=== PATIENT | female | born 1935 | race Caucasian/White ===

== ENCOUNTER 2017-11-15 23:09 | Emergency (ER) | END 2017-11-16 03:42 | disposition home or self-care (01) ==

== ENCOUNTER 2018-12-18 16:34 | Emergency (ER) | payer OTHER ==
[~2018-12-18] VITALS: Ht 152.4 cm; Wt 63.7 kg
[~2018-12-18 16:34] MED LIST: ACET325T33 PO; ALEN70TA5 PO; ASPI-817 PO; CALC1TAB87 PO; CEPH500C PO; CHOL200056 PO; CHOL200073 PO; ENOX40DI2 SC; GABA300C16 PO; HYDR12.58 PO; LEVO50TA7 PO; MECL12.574 PO; METO-319 PO; METO-335 PO; MIRT30TA5 PO; NAPR-985 PO; POLY17PO6 PO; SIMV10TA PO
[2018-12-18 16:46] VITALS: Ht 152.4 cm; Wt 63.7 kg
--- NOTE | 2018-12-18 17:02 | ERD ---
ER Documentation Chief Complaint Chief Complaint lower back/ R leg pain x1.5wks. no trauma. hx OP. rx'd dicofle oint, neuron HPI 83-year-old woman complaining of low back pain bilateral leg ache x2 weeks. Pain worse with ambulation and she states her symptoms are due to chronic osteoporosis. She denies hematuria or dysuria, no weight loss, no fevers or chills, no complaints of chest pain or shortness of breath. ROS All systems reviewed and are negative except as per history of present illness. Medications Home Meds Active Scripts Naproxen* (Naprosyn*) 500 Mg Tablet, 500 MG PO BID PRN for PAIN AND/OR INFLAMMATION, #30 TAB Prov:RAUL HERNANDEZ MD 12/18/18 Cephalexin* (Cephalexin*) 500 Mg Capsule, 500 MG PO Q8, #21 CAP Prov:RAUL HERNANDEZ MD 12/18/18 Reported Medications Meclizine Hcl* (Antivert*) 12.5 Mg Tab, 12.5 MG PO Q8H, #30 TAB 12/18/18 Metoprolol Succinate* (Toprol XL*) 50 Mg Tab.er.24h, 50 MG PO DAILY, #30 TAB 12/18/18 Hydrochlorothiazide* (Hydrochlorothiazide*) 12.5 Mg Tablet, 12.5 MG PO DAILY, #30 TAB 12/18/18 Cholecalciferol (Vitamin D3) (Vitamin D-3) 2,000 Unit Tablet, 2000 UNIT PO DAILY, TAB 12/18/18 Gabapentin* (Gabapentin*) 300 Mg Capsule, 300 MG PO DAILY, #60 CAP 12/18/18 Alendronate Sodium* (Fosamax*) 70 Mg Tablet, 70 MG PO Q7D, #4 TAB 12/18/18 Aspirin* (Aspirin* EC) 81 Mg Tablet.dr, 81 MG PO DAILY, TAB 12/18/18 Mirtazapine* (Mirtazapine*) 30 Mg Tablet, 30 MG PO HS, TAB 12/18/18 Discontinued Reported Medications Aspirin* (Aspirin* EC) 81 Mg Tablet.dr, 81 MG PO DAILY, TAB 09/20/17 Metoprolol Succinate* (Toprol XL*) 25 Mg Tab.sr.24h, 25 MG PO DAILY, #30 TAB 09/20/17 Alendronate Sodium* (Fosamax*) 70 Mg Tablet, 70 MG PO Q SUN, #4 TAB 09/20/17 Simvastatin* (Zocor*) 10 Mg Tablet, 10 MG PO QHS, #30 TAB 09/20/17 Calcium Carbonate/Vitamin D3 (Calcium 600 + Vit D3 400 Tab) 1 Each Tablet, 1 EACH PO DAILY, TAB 09/20/17 Cholecalciferol (Vitamin D3) (VITAMIN D-3) 2,000 Unit Capsule, 2000 UNIT PO DAILY, CAP 09/20/17 Discontinued Scripts Polyethylene Glycol* (Miralax*) 17 Gm Powd.pack, 17 GM PO DAILY, #7 Prov:JAIME YOON MD 11/16/17 Allergies Allergies: Coded Allergies: No Known Allergy (Unverified , 12/18/18) PMhx/Soc Hypertension, osteoporosis, dyslipidemia, anemia History of Surgery: Yes (vaginal hysterectomy w/ general anasthesia) Anesthesia Reaction: No Hx Neurological Disorder: No Hx Respiratory Disorders: No Hx Cardiac Disorders: No Hx Psychiatric Problems: Yes (depression) Hx Miscellaneous Medical Probl: Yes (HTN, OBESITY, high cholesterol, osteoparosis) Hx Alcohol Use: No Hx Substance Use: No Hx Tobacco Use: No FmHx Family History: No diabetes Physical Exam Vitals Vital Signs Date Temp Pulse Resp B/P (MAP) Pulse Ox O2 O2 Flow FiO2 Time Delivery Rate 12/18/18 97.1 68 16 174/84 97 Room Air 20:01 (114) 12/18/18 97.9 65 16 189/92 95 16:46 (124) Physical Exam GENERAL: Well-developed, well-nourished, well-hydrated, in no apparent distress, looks nontoxic in appearance HEENT: Moist mucous membranes, pink conjunctiva, no cervical spine tenderness or step-off deformities, no goiter, no jaundice or icterus, extraocular movements intact without pain. NEURO: Alert and oriented 3, cranial nerves II through XII intact bilaterally, pupils equal round reactive to light, no focal deficits or facial asymmetry, sensation intact distally Strength 5/5 in upper and lower extremities bilaterally CARDIAC: Regular rate and rhythm, no murmurs rubs or gallops LUNGS: Clear bilaterally no wheezing crackles or stridor EXTREMITIES: No clubbing cyanosis or edema, calves are bilaterally symmetrical, no Homans sign, no popliteal cord sign. Distal pulses equal and bilateral PSYCH: Normal affect without agitation or irritability Results 24 hrs Laboratory Tests Test 12/18/18 17:49 Urine Color YELLOW Urine Clarity CLEAR Urine pH 8.0 Urine Specific [place] 1.006 Urine Ketones NEGATIVE mg/dL Urine Nitrite NEGATIVE mg/dL Urine Bilirubin NEGATIVE mg/dL Urine Urobilinogen NEGATIVE mg/dL Urine Leukocyte Esterase TRACE Gadiel/ul Urine Microscopic RBC 2 /HPF Urine Microscopic WBC 1 /HPF Urine Bacteria FEW /HPF Urine Hemoglobin 1+ mg/dL Urine Glucose NEGATIVE mg/dL Urine Total Protein NEGATIVE mg/dl Current Medications Medications Dose Sig/Santos Start Time Status Last (Trade) Ordered Route PRN Stop Time Admin Dose Reason Admin Ketorolac 30 mg ONCE STAT 12/18/18 DC 12/18/18 Tromethamine IM 17:09 12/18/18 18:01 (Toradol) 17:10 Cephalexin 500 mg ONCE ONCE 12/18/18 DC 12/18/18 (Keflex) PO 20:00 12/18/18 19:54 20:01 Procedures/MDM I administered Toradol 30 mg IM x1 for pain control. Urine analysis reveals early UTI so I treated her here with cephalexin 500 mg p.o. and will give her a prescription. Differential diagnoses considered, included but not limited to acute coronary syndrome, pulmonary embolism, aortic dissection, abdominal aortic aneurysm, sepsis, stroke, meningitis, encephalitis, pneumonia, appendicitis, cholecystitis, bowel obstruction, pyelonephritis, nephrolithiasis, cystitis, as well as metabolic, hematologic, and electrolyte abnormalities. As well as abscess, cellulitis, fractures, and dislocations. Patient feels much better at this time, and vital signs are normal, symptoms have improved. I did give strict instructions to return to the ED if symptoms continue or worsen, patient will otherwise follow-up with primary care physician. Patient understood instructions and agreed to plan. Disclaimer: Inadvertent spelling and grammatical errors are likely due to EHR/dictation software use and do not reflect on the overall quality of patient care. Also, please note that the electronic time recorded on this note does not necessarily reflect the actual time of the patient encounter. Departure Diagnosis: Primary Impression: Lumbar back sprain Encounter type: initial encounter Qualified Codes: S33.5XXA - Sprain of ligaments of lumbar spine, initial encounter Additional Impressions: Body aches Acute UTI Condition: Good RAUL HERNANDEZ MD Dec 18, 2018 17:02
[2018-12-18] MEDS ORDERED: KETOROLAC 30 MG INJ IM STA (17:09)
[2018-12-18] MEDS ORDERED: CEPHALEXIN 500 MG CAP PO ONE (20:00)
[2018-12-18 20:01] VITALS: BP 174/84; PULSE 68; RESP 16
== END 2018-12-18 20:00 | disposition home or self-care (01) ==
LOC: E/R 16:34
DX: S33.5XXA Sprain of ligaments of lumbar spine, initial encounter (principal); N39.0 Urinary tract infection, site not specified; I10 Essential (primary) hypertension; S89.91XA Unspecified injury of right lower leg, initial encounter; S89.92XA Unspecified injury of left lower leg, initial encounter; X58.XXXA Exposure to other specified factors, initial encounter; Y92.9 Unspecified place or not applicable
CPT/HCPCS: 81001; 96372; J1885; Z7502; Z7610

== ENCOUNTER 2018-12-26 16:46 | Inpatient (IN) | payer OTHER ==
[~2018-12-26] VITALS: Ht 152.4 cm; Wt 64.6 kg
[~2018-12-26 16:46] MED LIST changes: +AMLO-145 PO; -CALC1TAB87 PO; -CHOL200073 PO; +LEVO50TA89 PO; -METO-335 PO; -POLY17PO6 PO; -SIMV10TA PO
[2018-12-26] MEDS ORDERED: ONDANSETRON 4 MG INJ IV PRN ×2 (19:00→20:30)
[2018-12-26] MEDS ORDERED: ACETAMINOPHEN 325 MG TAB PO PRN ×2 (19:00→20:30)
[2018-12-26] MEDS ORDERED: NS + KCL 20 MEQ 1,000 ML IV SCH (20:02)
[2018-12-26] MEDS ORDERED: NACL 0.9% 3 ML SYG IV SCH (20:30)
[2018-12-26] MEDS ORDERED: ZOLPIDEM 5 MG TAB PO PRN (20:30)
[2018-12-26 20:54] VITALS: BP 127/56; PULSE 71; RESP 19
[2018-12-26 21:00] VITALS: BP 123/48; PULSE 70; RESP 16
[2018-12-26] MEDS: MIRTAZAPINE 15 MG TAB PO SCH (21:00)
[2018-12-26 21:40] VITALS: Ht 152.4 cm; Wt 64.6 kg
[2018-12-26 22:00] VITALS: BP 116/63; PULSE 66; RESP 12
[2018-12-26 23:00] VITALS: BP 110/60; PULSE 64; RESP 14
[2018-12-27] VITALS (17 sets, daily range): BP systolic 93–150; BP diastolic 46–87; PULSE 63–78; RESP 12–26
[2018-12-27] MEDS: morphine 2 MG INJ IV PRN (01:30)
[2018-12-27] MEDS: POTASSIUM CHLORIDE 100 ML IVPB SCH ×2 (06:36→09:08)
[2018-12-27] MEDS: ENOXAPARIN 40 MG/0.4 ML SYG SC SCH (09:57)
[2018-12-27] MEDS ORDERED: POTASSIUM CHLORIDE 30 MEQ in SOD CHLORIDE 0.9% 1,000 ML IV SCH (10:00)
[2018-12-27] MEDS: DEXTROSE 5% 1,000 ML IV SCH ×2 (11:43→20:10)
[2018-12-27] MEDS: MIRTAZAPINE 15 MG TAB PO SCH (20:11)
[2018-12-27] MEDS: HYDROCODONE/APAP (5/325) TAB PO PRN (20:21)
[2018-12-28] VITALS: BP 133/65; PULSE 75; RESP 19
[2018-12-28 04:00] VITALS: BP 139/70; PULSE 71; RESP 18
[2018-12-28 07:36] VITALS: BP 154/87; PULSE 76; RESP 20
[2018-12-28] MEDS: ENOXAPARIN 40 MG/0.4 ML SYG SC SCH (08:36)
[2018-12-28] MEDS: DEXTROSE 5% 1,000 ML IV SCH (08:41)
[2018-12-28] MEDS ORDERED: POTASSIUM CHLORIDE 20 MEQ POWDER FOR ORAL SOLN PO ONE (10:00)
[2018-12-28 11:04] VITALS: BP 116/55; PULSE 84; RESP 20
[2018-12-28 16:12] VITALS: BP 134/63; PULSE 75; RESP 20
[2018-12-28 20:00] VITALS: BP 142/63; PULSE 70; RESP 20
[2018-12-28] MEDS: HYDROCODONE/APAP (5/325) TAB PO PRN (21:13)
[2018-12-28] MEDS: MIRTAZAPINE 15 MG TAB PO SCH (21:13)
[2018-12-28] MEDS ORDERED: HALOPERIDOL 5 MG INJ IM ONE (23:30)
[2018-12-29] VITALS: BP 138/62; PULSE 74; RESP 18
[2018-12-29 04:00] VITALS: BP 142/65; PULSE 75; RESP 18
[2018-12-29] MEDS: ENOXAPARIN 40 MG/0.4 ML SYG SC SCH (08:32)
[2018-12-29 11:06] VITALS: BP 132/75; PULSE 90; RESP 19
[2018-12-29 15:36] VITALS: BP 169/81; PULSE 86; RESP 18
[2018-12-29 16:15] VITALS: BP 142/69
[2018-12-29] MEDS: METOPROLOL (XL) 25 MG TAB PO SCH (18:09)
[2018-12-29 19:39] VITALS: BP 146/85; PULSE 91; RESP 18
[2018-12-29] MEDS ORDERED: HALOPERIDOL 5 MG INJ IM ONE (21:00)
[2018-12-29] MEDS: MIRTAZAPINE 15 MG TAB PO SCH (21:33)
[2018-12-30] VITALS (7 sets, daily range): BP systolic 132–168; BP diastolic 63–93; PULSE 64–99; RESP 18–20
[2018-12-30] MEDS ORDERED: LORAZEPAM 2 MG INJ ONE (02:20)
[2018-12-30] MEDS ORDERED: LORAZEPAM 2 MG INJ IV SCH (04:30)
[2018-12-30] MEDS ORDERED: HALOPERIDOL 5 MG INJ IM SCH (04:30)
[2018-12-30] MEDS: METOPROLOL (XL) 25 MG TAB PO SCH (08:24)
[2018-12-30] MEDS: ENOXAPARIN 40 MG/0.4 ML SYG SC SCH (08:46)
[2018-12-30] MEDS: HYDROCODONE/APAP (5/325) TAB PO PRN (10:44)
[2018-12-30] MEDS: LEVOTHYROXINE 50 MCG TAB PO SCH (14:47)
[2018-12-30] MEDS: MIRTAZAPINE 15 MG TAB PO SCH (20:19)
[2018-12-31 02:23] VITALS: BP 138/63; PULSE 18; RESP 18
[2018-12-31 02:25] VITALS: PULSE 73
[2018-12-31] MEDS: LEVOTHYROXINE 50 MCG TAB PO SCH (06:35)
[2018-12-31 08:09] VITALS: BP 186/88; PULSE 93; RESP 16
[2018-12-31] MEDS: ASPIRIN (EC) 81 MG TAB PO SCH (08:21)
[2018-12-31] MEDS: GABAPENTIN 300 MG CAP PO SCH (08:21)
[2018-12-31] MEDS: METOPROLOL (XL) 25 MG TAB PO SCH (08:22)
[2018-12-31] MEDS: ENOXAPARIN 40 MG/0.4 ML SYG SC SCH (08:25)
[2018-12-31 14:50] VITALS: BP 142/72; PULSE 96; RESP 16
[2018-12-31 20:00] VITALS: BP 137/70; PULSE 87; RESP 19
[2018-12-31] MEDS: MIRTAZAPINE 15 MG TAB PO SCH (20:34)
[2019-01-01 02:00] VITALS: BP 141/79; PULSE 72; RESP 18
[2019-01-01] MEDS: LEVOTHYROXINE 50 MCG TAB PO SCH (05:46)
[2019-01-01 07:39] VITALS: BP 153/74; PULSE 78; RESP 18
[2019-01-01] MEDS: GABAPENTIN 300 MG CAP PO SCH (09:02)
[2019-01-01] MEDS: ASPIRIN (EC) 81 MG TAB PO SCH (09:02)
[2019-01-01] MEDS: METOPROLOL (XL) 25 MG TAB PO SCH (09:03)
[2019-01-01] MEDS: ENOXAPARIN 40 MG/0.4 ML SYG SC SCH (09:07)
[2019-01-01 14:01] VITALS: BP 131/64; PULSE 62; RESP 18
[2019-01-01] MEDS: HYDROCODONE/APAP (5/325) TAB PO PRN (18:20)
[2019-01-01 19:43] VITALS: BP 103/55; PULSE 96; RESP 18
[2019-01-01] MEDS: MIRTAZAPINE 15 MG TAB PO SCH (20:25)
[2019-01-02 02:43] VITALS: BP 128/76; PULSE 79; RESP 17
[2019-01-02] MEDS: LEVOTHYROXINE 50 MCG TAB PO SCH (05:28)
[2019-01-02 07:49] VITALS: BP 127/65; PULSE 71; RESP 18
[2019-01-02] MEDS: SODIUM CHLORIDE 1 GM TAB PO SCH ×3 (08:27→20:21)
[2019-01-02] MEDS: ASPIRIN (EC) 81 MG TAB PO SCH (08:27)
[2019-01-02] MEDS: ENOXAPARIN 40 MG/0.4 ML SYG SC SCH (08:27)
[2019-01-02] MEDS: GABAPENTIN 300 MG CAP PO SCH ×2 (08:27→20:21)
[2019-01-02] MEDS: METOPROLOL (XL) 25 MG TAB PO SCH (08:28)
[2019-01-02] MEDS: DOCUSATE SODIUM 100 MG CAP PO PRN (08:33)
[2019-01-02 13:57] VITALS: BP 106/59; PULSE 77; RESP 18
[2019-01-02 20:18] VITALS: BP 109/56; PULSE 76; RESP 16
[2019-01-02] MEDS: MIRTAZAPINE 15 MG TAB PO SCH (20:21)
[2019-01-02] MEDS: morphine 2 MG INJ IV PRN (20:22)
[2019-01-02] MEDS: DICLOFENAC SODIUM 1% GEL 100 GM TUBE TP SCH (20:23)
[2019-01-03 02:14] VITALS: BP 159/79; PULSE 82; RESP 16
[2019-01-03 02:50] VITALS: BP 151/74
[2019-01-03] MEDS: GABAPENTIN 100 MG CAP PO SCH ×2 (05:12→17:17)
[2019-01-03] MEDS: LEVOTHYROXINE 50 MCG TAB PO SCH (05:12)
[2019-01-03] MEDS: ASPIRIN (EC) 81 MG TAB PO SCH (08:11)
[2019-01-03] MEDS: SODIUM CHLORIDE 1 GM TAB PO SCH ×3 (08:11→20:16)
[2019-01-03] MEDS: DICLOFENAC SODIUM 1% GEL 100 GM TUBE TP SCH ×2 (08:12→20:17)
[2019-01-03] MEDS: ENOXAPARIN 40 MG/0.4 ML SYG SC SCH (08:12)
[2019-01-03 08:15] VITALS: BP 122/62; PULSE 97; RESP 18
[2019-01-03] MEDS: METOPROLOL (XL) 25 MG TAB PO SCH (08:17)
[2019-01-03 14:54] VITALS: BP 109/57; PULSE 89; RESP 17
[2019-01-03 20:00] VITALS: BP 126/60; RESP 18
[2019-01-03] MEDS: MIRTAZAPINE 15 MG TAB PO SCH (20:16)
[2019-01-03] MEDS: GABAPENTIN 300 MG CAP PO SCH (20:17)
[2019-01-03 21:02] VITALS: PULSE 81
[2019-01-04 02:00] VITALS: BP 154/72; PULSE 81; RESP 18
[2019-01-04 04:29] VITALS: BP 152/71; PULSE 71; RESP 18
[2019-01-04] MEDS ORDERED: NITROGLYCERIN (SL) 0.4 MG TAB SL ONE (04:30)
[2019-01-04] MEDS: LEVOTHYROXINE 50 MCG TAB PO SCH (05:17)
[2019-01-04] MEDS: GABAPENTIN 100 MG CAP PO SCH ×2 (05:17→17:08)
[2019-01-04 07:16] VITALS: BP 135/69; PULSE 65; RESP 18
[2019-01-04] MEDS: ASPIRIN (EC) 81 MG TAB PO SCH (08:54)
[2019-01-04] MEDS: DICLOFENAC SODIUM 1% GEL 100 GM TUBE TP SCH ×2 (08:54→20:31)
[2019-01-04] MEDS: SODIUM CHLORIDE 1 GM TAB PO SCH ×3 (08:54→20:30)
[2019-01-04] MEDS: METOPROLOL (XL) 25 MG TAB PO SCH (08:54)
[2019-01-04] MEDS: ENOXAPARIN 40 MG/0.4 ML SYG SC SCH (09:10)
[2019-01-04 14:25] VITALS: BP 146/62; PULSE 75; RESP 16
[2019-01-04] MEDS: HYDROCODONE/APAP (5/325) TAB PO PRN (17:08)
[2019-01-04] MEDS: MIRTAZAPINE 15 MG TAB PO SCH (20:31)
[2019-01-04] MEDS: FAMOTIDINE 20 MG TAB PO SCH (20:31)
[2019-01-04] MEDS: GABAPENTIN 300 MG CAP PO SCH (20:31)
[2019-01-05 02:00] VITALS: BP 156/83; PULSE 68; RESP 18
[2019-01-05] MEDS ORDERED: LORAZEPAM 2 MG INJ IV ONE (03:00)
[2019-01-05] MEDS: GABAPENTIN 100 MG CAP PO SCH ×2 (05:32→17:26)
[2019-01-05] MEDS: LEVOTHYROXINE 50 MCG TAB PO SCH (05:32)
[2019-01-05 08:09] VITALS: BP 157/73; PULSE 71; RESP 18
[2019-01-05] MEDS: ASPIRIN (EC) 81 MG TAB PO SCH (08:41)
[2019-01-05] MEDS: SODIUM CHLORIDE 1 GM TAB PO SCH ×3 (08:41→20:58)
[2019-01-05] MEDS: METOPROLOL (XL) 25 MG TAB PO SCH (08:41)
[2019-01-05] MEDS: ENOXAPARIN 40 MG/0.4 ML SYG SC SCH (08:42)
[2019-01-05] MEDS: DICLOFENAC SODIUM 1% GEL 100 GM TUBE TP SCH ×2 (08:42→20:58)
[2019-01-05 14:40] VITALS: BP 158/81; PULSE 72; RESP 18
[2019-01-05] MEDS: DOCUSATE SODIUM 100 MG CAP PO PRN (17:26)
[2019-01-05 19:52] VITALS: BP 178/84; PULSE 71; RESP 18
[2019-01-05] MEDS: MIRTAZAPINE 15 MG TAB PO SCH (20:58)
[2019-01-05] MEDS: FAMOTIDINE 20 MG TAB PO SCH (20:58)
[2019-01-05] MEDS: GABAPENTIN 300 MG CAP PO SCH (20:58)
[2019-01-05] MEDS ORDERED: hydrALAzine 20 MG INJ IV ONE (22:30)
[2019-01-06 00:30] VITALS: BP 174/72; PULSE 72
[2019-01-06] MEDS ORDERED: hydrALAzine 20 MG INJ IV ONE (01:00)
[2019-01-06 01:50] VITALS: BP 110/54; PULSE 82; RESP 17
[2019-01-06] MEDS: LEVOTHYROXINE 50 MCG TAB PO SCH (05:46)
[2019-01-06] MEDS: GABAPENTIN 100 MG CAP PO SCH ×2 (05:46→17:20)
[2019-01-06 07:54] VITALS: BP 135/64; PULSE 77; RESP 18
[2019-01-06] MEDS: SODIUM CHLORIDE 1 GM TAB PO SCH ×4 (08:43→20:45)
[2019-01-06] MEDS: DICLOFENAC SODIUM 1% GEL 100 GM TUBE TP SCH ×2 (08:44→20:46)
[2019-01-06] MEDS: METOPROLOL (XL) 25 MG TAB PO SCH (08:44)
[2019-01-06] MEDS: ENOXAPARIN 40 MG/0.4 ML SYG SC SCH (08:46)
[2019-01-06] MEDS: ASPIRIN (EC) 81 MG TAB PO SCH (09:20)
[2019-01-06 14:08] VITALS: BP 133/64; PULSE 88; RESP 18
[2019-01-06] MEDS: DOCUSATE SODIUM 100 MG CAP PO PRN (17:20)
[2019-01-06 19:46] VITALS: BP 145/69; PULSE 84; RESP 17
[2019-01-06] MEDS: GABAPENTIN 300 MG CAP PO SCH (20:45)
[2019-01-06] MEDS: MIRTAZAPINE 15 MG TAB PO SCH (20:45)
[2019-01-06] MEDS: FAMOTIDINE 20 MG TAB PO SCH (20:45)
[2019-01-07 01:53] VITALS: BP 160/76; PULSE 70; RESP 19
[2019-01-07] MEDS: LEVOTHYROXINE 50 MCG TAB PO SCH (05:32)
[2019-01-07] MEDS: GABAPENTIN 100 MG CAP PO SCH ×2 (05:32→17:26)
[2019-01-07 07:31] VITALS: BP 156/74; PULSE 67; RESP 16
[2019-01-07] MEDS ORDERED: POTASSIUM CHLORIDE (SR) 20 MEQ TAB PO STA ×2 (07:42→13:03)
[2019-01-07] MEDS: METOPROLOL (XL) 25 MG TAB PO SCH (08:07)
[2019-01-07] MEDS: SODIUM CHLORIDE 1 GM TAB PO SCH ×3 (08:07→20:40)
[2019-01-07] MEDS: ENOXAPARIN 40 MG/0.4 ML SYG SC SCH (08:07)
[2019-01-07] MEDS: ASPIRIN (EC) 81 MG TAB PO SCH (08:07)
[2019-01-07] MEDS: DICLOFENAC SODIUM 1% GEL 100 GM TUBE TP SCH ×2 (08:08→20:41)
[2019-01-07] MEDS: DOCUSATE SODIUM 100 MG CAP PO PRN (08:13)
[2019-01-07] MEDS: AMLODIPINE 5 MG TAB PO SCH (14:20)
[2019-01-07 14:25] VITALS: BP 133/63; PULSE 63; RESP 18
[2019-01-07 20:00] VITALS: BP 151/78; PULSE 86; RESP 18
[2019-01-07] MEDS: FAMOTIDINE 20 MG TAB PO SCH (20:40)
[2019-01-07] MEDS: GABAPENTIN 300 MG CAP PO SCH (20:40)
[2019-01-07] MEDS: MIRTAZAPINE 15 MG TAB PO SCH (20:40)
[2019-01-08 02:17] VITALS: BP 155/67; PULSE 87; RESP 17
[2019-01-08] MEDS: LEVOTHYROXINE 50 MCG TAB PO SCH (05:19)
[2019-01-08] MEDS: GABAPENTIN 100 MG CAP PO SCH ×2 (05:19→16:51)
[2019-01-08 07:22] VITALS: BP 154/72; PULSE 70; RESP 18
[2019-01-08] MEDS: ENOXAPARIN 40 MG/0.4 ML SYG SC SCH (08:11)
[2019-01-08] MEDS: SODIUM CHLORIDE 1 GM TAB PO SCH ×2 (08:12→12:11)
[2019-01-08] MEDS: ASPIRIN (EC) 81 MG TAB PO SCH (08:12)
[2019-01-08] MEDS: AMLODIPINE 5 MG TAB PO SCH (08:13)
[2019-01-08] MEDS: METOPROLOL (XL) 25 MG TAB PO SCH (08:13)
[2019-01-08] MEDS: DICLOFENAC SODIUM 1% GEL 100 GM TUBE TP SCH (08:13)
[2019-01-08] MEDS: morphine 2 MG INJ IV PRN (12:12)
[2019-01-08 13:35] VITALS: BP 148/71; PULSE 88; RESP 18
== END 2019-01-08 20:05 | disposition home health service (06) | DRG 640 ==
LOC: E/R 16:46 → ICU 18:45 → 6WM 12-27 14:41 → MS3 12-30 21:52
PROVIDERS: ADMIT Internal Medicine; ATTEND Internal Medicine
DX: E87.1 Hypo-osmolality and hyponatremia (principal); G93.41 Metabolic encephalopathy; E86.0 Dehydration; D64.9 Anemia, unspecified; F03.90 Unspecified dementia, unspecified severity, without behavioral disturbance, psychotic disturbance, mood disturbance, and anxiety; E87.6 Hypokalemia; I10 Essential (primary) hypertension; E03.9 Hypothyroidism, unspecified; F32.9 Major depressive disorder, single episode, unspecified; F41.9 Anxiety disorder, unspecified; E78.5 Hyperlipidemia, unspecified; M81.0 Age-related osteoporosis without current pathological fracture; T50.2X5A Adverse effect of carbonic-anhydrase inhibitors, benzothiadiazides and other diuretics, initial encounter; Y92.230 Patient room in hospital as the place of occurrence of the external cause; M25.562 Pain in left knee; M25.561 Pain in right knee; R07.89 Other chest pain; R62.7 Adult failure to thrive; Z68.25 Body mass index [BMI] 25.0-25.9, adult; Z79.82 Long term (current) use of aspirin
CPT/HCPCS: 36415; 70450; 71045; 73560; 80048; 80053; 80307; 81003; 82553; 82607; 82746; 82962; 83036; 83605; 83690; 83735; 83930; 83935; 84100; 84155; 84295; 84300; 84439; 84443; 84480; 84484; 85025; 85610; 86592; 87081; 92526; 92610; 93005; 97110; 97116; 97162; 97167; 97530; 97535; J0360; J1630; J1650; J2060; J2270; J3480; J7030; J7070

== ENCOUNTER 2019-01-28 21:44 | Emergency (ER) | payer OTHER ==
[~2019-01-28] VITALS: Ht 149.9 cm; Wt 59.1 kg
[~2019-01-28 21:44] MED LIST changes: -ACET325T33 PO; +BETH25TA39 PO; -CEPH500C PO; +DICL100G33 TOP; +DOCU-159 PO; -ENOX40DI2 SC; +ESCI10TA48 PO; -HYDR12.58 PO; -LEVO50TA7 PO; +POTA10TA37 PO
[2019-01-28 22:18] VITALS: Ht 149.9 cm; Wt 59.1 kg
[2019-01-29] MEDS ORDERED: POTASSIUM CHLORIDE (SR) 20 MEQ TAB PO ONE (02:47)
[2019-01-29 03:18] VITALS: BP 140/64; PULSE 63; RESP 20
== END 2019-01-29 03:32 | disposition home or self-care (01) ==
LOC: E/R 21:44
DX: D64.9 Anemia, unspecified (principal); E87.6 Hypokalemia; E87.1 Hypo-osmolality and hyponatremia; K08.89 Other specified disorders of teeth and supporting structures; I10 Essential (primary) hypertension; E03.9 Hypothyroidism, unspecified; Z79.82 Long term (current) use of aspirin
CPT/HCPCS: 80048; 81003; 83735; 85025; 93005; Z7502; Z7610